=== PATIENT | female | born 1970 | race Hispanic/Latino ===

== ENCOUNTER 2020-03-31 13:33 | Outpatient (CLI) | payer OTHER ==
--- NOTE | 2020-03-31 15:16 | Mammography Report ---
DIGITAL DIAGNOSTIC MAMMOGRAM WITH CAD, 03/31/2020 INDICATION: Six-month follow-up post right biopsy. TECHNIQUE: Digital bilateral mammographic imaging was performed. This examination was interpreted with the benefit of Computer-aided Detection analysis. COMPARISON: 08/07/19. FINDINGS: Breast Density: The breasts are heterogeneously dense, which may obscure small masses. There is no evidence of dominant mass, suspicious calcifications or architectural distortion in eithe r breast. Benign nodularity bilaterally is again identified. There is a new biopsy clip adjacent to t he nodule in the right medial breast. No other change. IMPRESSION: No mammographic evidence of malignancy. Follow up recommendation: Routine yearly BI-RADS Category 2: Benign. A "normal" or negative report should not discourage follow up or biopsy of a clinically significant f inding. A written summary of these findings will be mailed to the patient. The patient will be entered into a mammography reporting system which will generate a reminder letter for the patient's next appointmen t at the appropriate interval. According to the [employer], yearly mammograms are recommended starting at age 40 and continuing as long as a woman is in good health. Breast MRI is recommended for women with an emily roximately 20-25% or greater lifetime risk of breast cancer, including women with a strong family his tory of breast or ovarian cancer and women who have been treated for Hodgkin's disease. Signer Name: Israel Casas MD Signed: 03/31/2020 3:12 PM Workstation Name: [id number]
--- NOTE | 2020-04-01 10:44 | Ultrasound Report ---
EXAMINATION: Bilateral Limited Breast Ultrasound, 03/31/2020 INDICATION: Bilateral breast masses. COMPARISON: Bilateral diagnostic mammogram from the same day. Previous mammograms from 08/19/2019 and 08/07/2019. FINDINGS: Targeted ultrasound evaluation was performed of the area of interest. Right breast: In the 2:00 position is a previously biopsied mass measuring 9 x 4 x 7 mm and located 4 .5 cm from the nipple. The mass is lobulated and wider than tall without distinct calcifications, int ernal color flow or posterior acoustic shadowing. No other significant abnormality. Left breast: Multiple simple appearing cysts are seen from the 3:00 through the 9:00 positions. The l argest cyst is located in the 3:00 position and measures up to 1 cm. No additional significant abnorm ality. IMPRESSION: Previously biopsied right breast mass as above. Please correlate with the pathology report of the michelle or biopsy. No other evidence of malignancy in the right breast. Simple appearing left breast cysts as above. Follow up recommendation: Routine yearly BI-RADS Category 2: Benign. Signer Name: Jj Ureña MD Signed: 04/01/2020 10:39 AM Workstation Name: [email or web address]
== END 2020-03-31 13:34 | disposition home or self-care (01) ==
LOC: SPVWC 13:33
PROVIDERS: ATTEND Surgery
DX: N63.41 Unspecified lump in right breast, subareolar (principal); N63.20 Unspecified lump in the left breast, unspecified quadrant
CPT/HCPCS: 77066

== ENCOUNTER 2020-08-25 13:10 | Outpatient (CLI) | payer OTHER ==
--- NOTE | 2020-08-25 13:55 | Mammography Report ---
DIGITAL SCREENING MAMMOGRAM WITH CAD, 08/25/2020 CLINICAL INFORMATION / INDICATION: Routine screening mammography. TECHNIQUE: Digital bilateral 2D mammography was obtained in the craniocaudal and mediolateral obliqu e projections. This examination was interpreted with the benefit of Computer-Aided Detection analysis . COMPARISON: 03/31/2020, 08/07/2019 FINDINGS: Breast Density: The breasts are heterogeneously dense, which may obscure small masses. No dominant mass, suspicious calcifications, or architectural distortion in either breast. Stable nodule is noted in the right breast at 3:00 with adjacent biopsy clip. Previously noted fibroc ystic change in the left breast has regressed slightly. No other significant interval change. IMPRESSION: No mammographic evidence of malignancy. Follow up recommendation: Routine yearly BI-RADS Category 2: Benign. A "normal" or negative report should not discourage follow up or biopsy of a clinically significant f inding. A written summary of these findings will be mailed to the patient. The patient will be entered into a mammography reporting system which will generate a reminder letter for the patient's next appointmen t at the appropriate interval. The [employer] recommends yearly mammograms starting at age 40 and continuing as l randall as a woman is in good health. Breast MRI is recommended for women with an approximate 20-25% or greater lifetime risk of breast cancer, including women with a strong family history of breast or ova la cancer or who have been treated for Hodgkin's disease. Signer Name: Petra Alvarado MD Signed: 08/25/2020 1:50 PM Workstation Name: [id number]
== END 2020-08-25 13:11 | disposition home or self-care (01) ==
LOC: SPVWC 13:10
PROVIDERS: ATTEND Surgery
DX: Z12.31 Encounter for screening mammogram for malignant neoplasm of breast (principal); N63.15 Unspecified lump in the right breast, overlapping quadrants; N64.89 Other specified disorders of breast
CPT/HCPCS: 77067